=== PATIENT | female | born 2000 | race Caucasian/White ===

== ENCOUNTER 2021-08-13 18:53 | Emergency (ER) | payer OTHER, SELFPAY ==
--- NOTE | ~2021-08-13 | XR_ITS ---
EXAMINATION: XR foot RT 2V, XR ankle RT min 3V DATE: 08/13/2021 19:32 INDICATION: Right foot pain and swelling post injury TECHNIQUE: 1. Anteroposterior, mortise and lateral view of the right ankle were obtained. 2. Dorsoplantar and lateral views of the right foot were obtained. COMPARISON: None. FINDINGS: Nondisplaced intra-articular fracture at the lateral base of the right fifth proximal phalanx. Otherw ise normal alignment throughout the right foot and ankle. No other fractures identified. Joint spaces are normal. IMPRESSION: 1. Nondisplaced intra-articular fracture at the lateral base of the right fifth metatarsal. Reviewed, dictated and finalized at location A. IMPRESSION: 1. Nondisplaced intra-articular fracture at the lateral base of the right fifth metatarsal.
[2021-08-13 19:14] VITALS: BP 153/90; PULSE 111; RESP 18; TEMP 36.9; O2SAT 100
[2021-08-13 22:57] VITALS: BP 148/94; PULSE 87; RESP 16; O2SAT 100
[2021-08-14 00:17] VITALS: BP 154/97; PULSE 98; RESP 16; O2SAT 100
--- NOTE | 2021-08-14 00:20 | ED.LOWEXIN ---
HPI - Extremity Injury (Lower) General Chief Complaint: Extremity Injury, Lower Stated Complaint: right ankle injury Time Seen by Provider: 08/14/21 00:14 History of Present Illness HPI Narrative: Patient is a 21-year-old female who presents ER with right foot injury. She was walking her driveway and stepped on a rock and suffered inversion injury. She not fall or strike her head. Sudden onset pain in her foot. Worse with walking. No numbness or tingling but occasionally has tingling when her foot is below her. Related Data Allergies Allergy/AdvReac Type Severity Reaction Status Date / Time No Known Allergies Allergy Verified 08/13/21 19:18 Review of Systems Respiratory: Respiratory: Denies cough and Denies dyspnea Musculoskeletal: Musculoskeletal: Reports arthralgias, Reports joint swelling and Denies muscle cramps Neurologic: Denies headache(s), Denies focal weakness and Denies numbness Comments: Tingling of the right foot intermittently. [facility] Past Medical History Medical History (Updated 08/14/21 @ 00:23 by Karlo Hagan MD) Healthy female adult Surgical History Surgical History (Updated 08/14/21 @ 00:21 by Karlo Hagan MD) No history of previous surgery Social History Social History (Updated 08/14/21 @ 00:22 by Karlo Hagan MD) Smoking status: Never smoker Exam Narrative: GENERAL: Well-appearing, morbidly obese, and in no acute distress. HEAD: Normocephalic, atraumatic. CHEST: Clear to auscultation. No respiratory distress. HEART: Regular rate and rhythm. Normal peripheral pulses. EXTREMITIES: Focused exam of the right foot reveals tenderness at the base of the fifth metatarsal. No tenderness at the ankle. No bruising or swelling. NEURO: No focal deficits. Alert and oriented x3. Course Course Emergency Course: [place] x1 here. Postop shoe and crutches for home. Follow-up with orthopedic surgery. Vital Signs Vital signs: Vital Signs Temperature 98.4 F 08/13/21 19:14 Pulse Rate 111 H 08/13/21 19:14 Respiratory Rate 18 08/13/21 19:14 Blood Pressure 153/90 H 08/13/21 19:14 Pulse Oximetry 100 08/13/21 19:14 Temperature 98.4 F 08/13/21 19:14 Pulse Rate 98 08/14/21 00:17 Respiratory Rate 16 08/14/21 00:17 Blood Pressure 154/97 H 08/14/21 00:17 Pulse Oximetry 100 08/14/21 00:17 MDM - Extremity Injury (Lower) Imaging Data Radiologist's impression: ITS Impressions Ankle X-Ray 08/13/21 19:45 IMPRESSION: 1. Nondisplaced intra-articular fracture at the lateral base of the right fifth metatarsal. Foot X-Ray 08/13/21 19:45 IMPRESSION: 1. Nondisplaced intra-articular fracture at the lateral base of the right fifth metatarsal. Discharge Plan Discharge Clinical Impression: Closed fracture of fifth metatarsal bone Patient Disposition: Home, Self-Care Condition: Stable Instructions: Foot Fracture in Adults (ED) Additional Instructions: Return to the ER if you have chest pain or shortness of breath, you suffer new injury, you have additional concerns. Bear weight as tolerated. Follow-up with orthopedic surgery. Prescriptions: New hydrocodone-acetaminophen 5-325 mg tablet 1 tablet PO Q6H PRN (Reason: pain) Qty: 10 RF: 0 Follow-up/Referrals: Felice Blanco MD [Physician] - 1 Week PHYSICIAN,INVENTORY ASSOCIATE [Primary Care Provider] -
[2021-08-14 00:56] VITALS: BP 154/97; PULSE 80; RESP 18; TEMP 36.7; O2SAT 100
[2021-08-14] MEDS: HYDROcodone/acetaminophen (*CRX) 5-325 MG TABLET 1 TAB PO (01:04)
== END 2021-08-14 01:09 | disposition home or self-care (01) ==
LOC: ANHED 08-14 00:33
PROVIDERS: Emergency Provider Emergency Medicine
DX: S92.354A Nondisplaced fracture of fifth metatarsal bone, right foot, initial encounter for closed fracture (principal); X50.1XXA Overexertion from prolonged static or awkward postures, initial encounter
CPT/HCPCS: 73610; 73620; 99284; A9270

== ENCOUNTER 2022-08-22 09:41 | Emergency (ER) | payer OTHER, SELFPAY ==
--- NOTE | 2022-08-22 09:48 | ED.URI ---
HPI - URI/Sore Throat General Chief Complaint: Upper Respiratory Infection Stated Complaint: migraine sore throat aches nausea Time Seen by Provider: 08/22/22 09:49 Source: patient Mode of arrival: ambulatory Limitations: no limitations History of Present Illness HPI Narrative: Ms. Barclay is a 22-year-old female patient presenting to the clinic today with complaints of a headache, sore throat, body aches, low-grade fever, and nausea x6 days. She reports symptoms started last Saturday. She had a COVID test completed for work this morning. She reports that she had a low-grade fever today. No known sick contacts. History of tonsillectomy MD elicited complaint: fever, cough, sore throat, rhinorrhea, nasal congestion and other (Headache) Related Data Allergies Allergy/AdvReac Type Severity Reaction Status Date / Time No Known Allergies Allergy Verified 10/17/21 13:52 Review of Systems Review of Systems: Pertinent positives per HPI. Patient denies any fever, chills, rash, visual changes, dizziness, cough, shortness of breath, chest pain, palpitations, vomiting, diarrhea, constipation, abdominal pain, or any urinary issues. 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 There is no relevant family history pertinent to the patient complaint. Exam Narrative: General: Well-developed, morbidly obese, in no apparent distress Head: Normocephalic, atraumatic Eyes: Pupils equally round and reactive to light bilaterally, EOM intact, sclera and conjunctive clear, no discharge, lids normal Ears: TMs intact, dull, red, ear canals clear, no drainage, grossly hearing normal. Nose: Nares patent, clear nasal discharge, no inflammation, no sinus tenderness. Mouth: Oral pharynx without lesions or masses, good dentition, MMM. Oropharynx red, postnasal drip, tonsils surgically absent Neck: Supple, trachea midline, mild enlargement of anterior cervical nodes, no thyroid masses or goiter palpable. Cardio: Regular rate and rhythm, s1 and s2 normal, no murmur appreciated. Resp: Clear to auscultation bilaterally, no rhonchi, rales, wheezing or rubs Course Course Emergency Course: Portions of this record may have been created with voice recognition software. Level of Care: Express Care Visit Vital Signs Vital signs: Vital signs reviewed MDM - URI/Sore Throat MDM Narrative Medical decision making narrative: At the time of visit patient is resting comfortably on the exam table, patient had COVID test performed this morning for work and it was negative. Influenza and strep testing performed in the clinic today and they were negative. I suspect the patient has upper respiratory infection with viral syndrome. Supportive measures were discussed with the patient she voiced understanding of discharge instructions and agrees to treatment plan. Differential Diagnosis Differential diagnosis: Likely upper respiratory infection, otitis media, sinusitis, viral infection, bronchitis, influenza, pharyngitis and other (COVID) Discharge Plan Discharge Clinical Impression: Viral syndrome, URI (upper respiratory infection) Maciel
[2022-08-22 09:50] VITALS: BP 161/102; PULSE 119; RESP 18; TEMP 37; O2SAT 100
== END 2022-08-22 10:27 | disposition home or self-care (01) ==
PROVIDERS: Emergency Provider Nurse Practitioner Family
DX: B34.9 Viral infection, unspecified (principal); J06.9 Acute upper respiratory infection, unspecified; E66.9 Obesity, unspecified; Z68.43 Body mass index [BMI] 50.0-59.9, adult
CPT/HCPCS: 87081; 87804; 87880; 99213; G0463

== ENCOUNTER 2022-08-28 10:53 | Emergency (ER) | payer OTHER, SELFPAY ==
--- NOTE | ~2022-08-28 | XR_ITS ---
EXAMINATION: XR chest 1V portable DATE: 08/28/2022 14:21 INDICATION: Cough. Upper respiratory infection. Fever and shortness of breath. TECHNIQUE: A single frontal view of the chest was obtained. COMPARISON: None. FINDINGS: The chest demonstrates clear lungs without pneumonia, pleural effusion, or pneumothorax. Th e heart size is normal. IMPRESSION: 1. No acute cardiopulmonary disease. Reviewed, dictated and finalized at location A.
[2022-08-28 11:03] VITALS: BP 153/73; PULSE 99; RESP 17; TEMP 36.3; O2SAT 99
--- NOTE | 2022-08-28 13:26 | ED.URI ---
HPI - URI/Sore Throat General Chief Complaint: Upper Respiratory Infection <TOPHER [place] Last Filed: 08/28/22 18:01> Stated Complaint: upper resp. symptoms <TOPHER [place] Last Filed: 08/28/22 18:01> Time Seen by Provider: 08/28/22 12:43 <TOPHER [place] Last Filed: 08/28/22 18:01> Source: patient <TOPHER [place] Last Filed: 08/28/22 18:01> Mode of arrival: ambulatory <TOPHER [place] Last Filed: 08/28/22 18:01> Limitations: no limitations <TOPHER [place] Last Filed: 08/28/22 18:01> History of Present Illness HPI Narrative: Patient is a 22-year-old female who presents to the ED with multiple complaints. Patient reports she has been sick for the past 2 weeks. She reports having muscle aches, headache, congestion, rhinorrhea, sore throat, cough, nausea, vomiting, intermittent fever. She has been seen at an urgent care recently and had negative influenza and strep testing. She has tested negative for covid last week and this morning. She states symptoms seem to be improving over the weekend, but became worse again over the last couple days, prompting her presentation. She denies any chest pain, difficulty breathing, hemoptysis, abdominal pain. <TOPHER [place] Last Filed: 08/28/22 18:01> Related Data Allergies/Adverse Reactions: Allergies Allergy/AdvReac Type Severity Reaction Status Date / Time No Known Allergies Allergy Verified 10/17/21 13:52 <TOPHER [place] Last Filed: 08/28/22 18:01> Review of Systems Review of Systems: CONSTITUTIONAL: Denies fever, chills, or sweats. ENT: Reports rhinorrhea, congestion, sore throat. CARDIOVASCULAR: Denies chest pain. RESPIRATORY: Reports cough. Denies dyspnea. GASTROINTESTINAL: Reports nausea, vomiting. Denies abdominal pain, diarrhea. MUSCULOSKELETAL: Reports myalgia. NEUROLOGIC: Reports headache. Denies numbness, or weakness. <Tatyana Del Toro PA-C - Last Filed: 08/28/22 18:01> All systems reviewed & are unremarkable except as noted in HPI and below <Tatyana Del Toro PA-C - Last Filed: 08/28/22 18:01> [facility] Past Medical History Medical History: Medical History (Updated 08/29/22 @ 00:01 by Kiel Goldberg) Obesity <Tatyana Del Toro PA-C - Last Filed: 08/28/22 18:01> Surgical History Surgical History: Surgical History (Updated 08/28/22 @ 13:27 by Tatyana Del Toro PA-C) History of tonsillectomy 2009 <Tatyana Del Toro PA-C - Last Filed: 08/28/22 18:01> Family History Family History: Family History Other Depression Diabetes mellitus Hypertension <Tatyana Del Toro PA-C - Last Filed: 08/28/22 18:01> Social History Social History: Social History Alcohol intake: current Substance use: never Substance use type: does not use 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 HEAD: Normocephalic, atraumatic. EYES: PERRL/EOMI, conjunctivae clear bilaterally. NOSE: Normal, scant yellow drainage. Tenderness to palpation over ethmoid and maxillary sinuses. EARS: TMS clear, with good light reflex. No erythema or bulging. THROAT: Pharynx clear, no exudate. MMs moist. Minimal posterior erythema. NECK: Supple. Minimal anterior cervical tender adenopathy, no masses. RESPIRATORY: Airway patent, respirations nonlabored. Clear to auscultation bilaterally, no rales, rhonchi, wheezing. No respiratory distress. CARDIOVASCULAR: Regular rate and rhythm without murmurs, rubs, or gallops. Peripheral pulses 2+ and equal bilater
[2022-08-28] MEDS: ONDANSETRON HCL ODT 4 MG TABLET PO (13:32)
[2022-08-28 13:46] LABS: Basophils Percent Auto 0.3 % (0.2-1.2); Eosinophils Absolute Auto 0.2 K/mm3 (0-0.3); Eosinophils Percent Auto 1.4 % (0-4.4); Hematocrit 41.5 % (37.0-47.0); Hemoglobin 13.8 g/dL (12.0-15.0); Immature Granulocyte Absolute 0.03 K/mm3 (0.00-0.031); Immature Granulocyte Percent A 0.3 % (0-0.5); Lymphocytes Absolute Auto 2.51 K/mm3 (0.9-3.2); Lymphocytes Percent Auto 22.4 % (18.3-44.2); Mean Corpuscular HGB Conc 33.3 g/dl (32-36); Mean Corpuscular Hemoglobin 29.4 pg (26-34); Mean Corpuscular Volume 88.3 fl (80-100); Mean Platelet Volume 8.9 fl (7.4-10.4); Monocytes Absolute Auto 0.5 K/mm3 (0.1-0.6); Monocytes Percent Auto 4.3 % (2.6-8.5); Neutrophils Percent Auto 71.3 % (45.5-73.1); Platelet Count Result 420 k/mm3 (150-375); Red Cell Distribution Width 13.1 % (11.5-14.5); White Blood Count 11.2 K/mm3 (4.5-10.0)
[2022-08-28 13:57] LABS: Alanine Aminotransferase 38 U/L (6-35); Albumin Level 4.8 g/dL (3.5-5.1); Alkaline Phosphatase 102 U/L (38-126); Anion Gap 15 mmol/L (8-16); Aspartate Amino Transferase 32 U/L (14-36); Bilirubin,Total 0.7 mg/dL (0.2-1.3); Blood Urea Nitrogen 13 mg/dL (7-17); Calcium 9.5 mg/dL (8.4-10.2); Carbon Dioxide 26 mmol/L (22-30); Chloride 102 mmol/L (98-107); Estimated CRCL calculation 194 ml/min; Estimated Glomerular Filt Rate > 60; Glucose 104 mg/dL (65-110); Potassium 3.9 mmol/L (3.4-5.0); Sodium 143 mmol/L (137-145)
[2022-08-28] MEDS: AMOXICILLIN/CLAVULANATE K 875-125 MG TAB 1 TABLET PO (15:32)
[2022-08-28 15:41] VITALS: BP 142/76; PULSE 76; RESP 18; O2SAT 99
== END 2022-08-28 15:42 | disposition home or self-care (01) ==
PROVIDERS: Physician Assistant; Emergency Provider Emergency Medicine
DX: J01.90 Acute sinusitis, unspecified (principal); B96.89 Other specified bacterial agents as the cause of diseases classified elsewhere
CPT/HCPCS: 36415; 71045; 80053; 85025; 99283; A9270

== ENCOUNTER 2022-12-28 09:21 | Emergency (ER) | payer OTHER, SELFPAY ==
[2022-12-28 09:39] VITALS: BP 151/100; PULSE 107; RESP 16; TEMP 37.3; O2SAT 100
--- NOTE | 2022-12-28 09:42 | ED.URI ---
HPI - URI/Sore Throat General Chief Complaint: Upper Respiratory Infection Stated Complaint: chills, sore throat, swollen lymph nodes, fever Time Seen by Provider: 12/28/22 09:42 History of Present Illness HPI Narrative: 22-year-old female presented for complaint of sore throat, neck pain with swollen glands, headache and fever since yesterday. She endorses fever of 101 yesterday. Reports decreased appetite. She has taken Tylenol and ibuprofen. She took a negative COVID test at home today. She denies shortness of breath, wheezing, vomiting, diarrhea, or lethargy. Endorses sick contacts with COVID at work. 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 EYES: conjunctivae clear ENT: Mucous membranes moist. TM pearly [place] with normal light reflex bilaterally; no tragal tenderness. Oropharynx erythematous without lesions. Tonsils absent. No drooling, no hoarseness, no trismus, uvula midline. No tripod positioning, hot potato voice, or soft palate swelling. NECK: Supple. Bilateral anterior cervical lymphadenopathy CHEST: Clear to auscultation, breath sounds equal. HEART: Regular rate and rhythm. No murmur heard. SKIN: Warm, dry, no rash. NEURO: Alert and oriented x3. Course Course Emergency Course: Patient is aware of diagnosis, understands and agrees to treatment plan. Anticipatory guidance given. Patient agrees to follow-up as directed and is aware of reasons to seek care at the emergency department. Portions of this record may have been created with voice recognition software Level of Care: Express Care Visit MDM - URI/Sore Throat MDM Narrative Medical decision making narrative: strep result reviewed with pt. Advise supportive treatments. Patient is appropriate for outpatient treatment and follow-up. Differential Diagnosis Differential diagnosis: Likely upper respiratory infection, viral infection and pharyngitis Discharge Plan Discharge Clinical Impression: Strep pharyngitis Patient Disposition: Home, Self-Care Condition: Stable Instructions: Antibiotic Form, Strep Throat (ED) Additional Instructions: - Take the antibiotic as directed. Fever and sore throat typically resolve within one to three days. Most patients can return to work after 12 to 24 hours of antibiotic therapy, provided you are fever free and otherwise well. -Eat and drink things that are easy to swallow, like soft foods, cool liquids, tea with honey, or popsicles . -Salt water gargles and/or may use topical anesthetic ( Chloraseptic spray) or lozenges to relieve dryness or throat pain -Alternate Tylenol and ibuprofen as needed for pain and fever as directed. -Frequent hand washing or hand shuttle operator is one of the best ways to prevent spread of infection. Throw away the toothbrush after 24hours of antibiotic. -Follow up with primary care provider in 2-3 days if condition is not improving -Go to the ER if you have trouble breathing, cannot drink enough fluids, have muffled voice or drooling, difficulty opening your mouth, or toni
== END 2022-12-28 09:58 | disposition home or self-care (01) ==
PROVIDERS: Emergency Provider Nurse Practitioner Family
DX: J02.0 Streptococcal pharyngitis (principal)
CPT/HCPCS: 87804; 87880; 99213; G0463

== ENCOUNTER 2023-04-02 16:48 | Emergency (ER) | payer OTHER, SELFPAY ==
[2023-04-02 17:18] VITALS: BP 147/97; PULSE 94; RESP 18; TEMP 36.4; O2SAT 99
--- NOTE | 2023-04-02 17:20 | ECG_ITS ---
Measurements Intervals [place] Rate: 88 P: 12 NV: 159 QRS: -2 QRSD: 86 T: 30 QT: 353 QTc: 428 Interpretive Statements SINUS RHYTHM VOLTAGE CRITERIA FOR LVH BASELINE ARTIFACT- I, II, III, AVL, AVF, V2 BORDERLINE ECG NO PREVIOUS ECG AVAILABLE FOR COMPARISON Electronically Signed On 04-03-2023 6:38:07 CDT by Mandeep Treviño D.O.
[2023-04-02 17:44] LABS: Basophils Percent Auto 0.3 % (0.2-1.2); Eosinophils Absolute Auto 0.1 K/mm3 (0-0.3); Eosinophils Percent Auto 0.4 % (0-4.4); Hematocrit 40.1 % (37.0-47.0); Immature Granulocyte Absolute 0.03 K/mm3 (0.00-0.031); Immature Granulocyte Percent A 0.3 % (0-0.5); Lymphocytes Absolute Auto 2.08 K/mm3 (0.9-3.2); Lymphocytes Percent Auto 18.7 % (18.3-44.2); Mean Corpuscular HGB Conc 32.4 g/dl (32-36); Mean Corpuscular Hemoglobin 28.8 pg (26-34); Mean Corpuscular Volume 88.9 fl (80-100); Mean Platelet Volume 8.9 fl (7.4-10.4); Monocytes Absolute Auto 0.5 K/mm3 (0.1-0.6); Monocytes Percent Auto 4.4 % (2.6-8.5); Neutrophils Absolute Auto 8.5 K/mm3 (1.3-6.7); Neutrophils Percent Auto 75.9 % (45.5-73.1); Platelet Count Result 406 k/mm3 (150-375); Red Blood Count 4.51 M/mm3 (4.2-5.4); Red Cell Distribution Width 13.1 % (11.5-14.5); White Blood Count 11.1 K/mm3 (4.5-10.0)
[2023-04-02 17:55] LABS: Alanine Aminotransferase 32 U/L (6-35); Albumin Level 4.7 g/dL (3.5-5.1); Alkaline Phosphatase 91 U/L (38-126); Anion Gap 9 mmol/L (8-16); Aspartate Amino Transferase 31 U/L (14-36); Bilirubin,Total 0.6 mg/dL (0.2-1.3); Blood Urea Nitrogen 12 mg/dL (7-17); Calcium 9.1 mg/dL (8.4-10.2); Carbon Dioxide 28 mmol/L (22-30); Chloride 102 mmol/L (98-107); Estimated CRCL calculation 194 ml/min; Estimated Glomerular Filt Rate > 60; Glucose 106 mg/dL (65-110); Potassium 3.5 mmol/L (3.4-5.0); Sodium 139 mmol/L (137-145)
--- NOTE | 2023-04-02 20:12 | PC.NURSE ---
Pt states she had 4 wisdom teeth removed this morning. Reports she only had local numbing medication. Around 1620 pt states I started feeling dizzy, and really cold, and I started to lose my hearing. I looked down at my watch and my heart rate was in the 40's . Pt states this episode lasted 3-5 minutes. She denies any dizziness or SOB at this time. Her only complaint is headache rated 2/10. Speech is clear, pupils PEARRL, moves all extremities equally.
--- NOTE | 2023-04-02 20:57 | ED.SYNCOPE ---
HPI - Syncope General Chief Complaint: Syncope Stated Complaint: Unspecified Time Seen by Provider: 04/02/23 19:55 History of Present Illness HPI narrative: Patient is a 22-year-old female presenting after a syncopal episode. Patient states that she had her wisdom teeth removed this morning. States that she was able to go home afterwards. States that she went to the bathroom and as she was sitting on the toilet, she became lightheaded, diaphoretic, nauseated. States that she felt like she was about to pass out. States that she has had a similar episode in the past that was related to severe back pain. Patient states that she remained seated for several minutes and then the episode improved. No chest pain. States that she had some shortness of breath during the episode but not since. No numbness or weakness, vision changes, speech changes, no vomiting or diarrhea. Denies leg swelling. Denies further complaints. Currently, she states she feels at baseline. 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 HEAD: Normocephalic, atraumatic. EYES: PERRLA and EOMI. ENT: Nares clear, no rhinorrhea or epistaxis. Mucous membranes moist. NECK: Supple. CHEST: No respiratory distress. HEART: Regular rate and rhythm ABDOMEN: Soft, nontender, nondistended EXTREMITIES: Normal range of motion. No edema. SKIN: Warm, dry, no rash. NEURO: No focal deficits. Alert and oriented x3. PSYCH: Normal mood and affect. Course Vital Signs Vital signs: Vital Signs Temperature 97.6 F 04/02/23 17:18 Pulse Rate 94 04/02/23 17:18 Respiratory Rate 18 04/02/23 17:18 Blood Pressure 147/97 H 04/02/23 17:18 Pulse Oximetry 99 04/02/23 17:18 Oxygen Delivery Room Air 04/02/23 17:18 Temperature 97.6 F 04/02/23 17:18 Pulse Rate 88 04/02/23 21:13 Respiratory Rate 16 04/02/23 21:13 Blood Pressure 132/92 H 04/02/23 21:13 Pulse Oximetry 99 04/02/23 21:13 Oxygen Delivery Room Air 04/02/23 17:18 MDM - Syncope MDM Narrative Medical decision making narrative: Patient is a 22-year-old female presenting with a syncopal episode. Patient is hypertensive, otherwise vitals are within normal limits. Exam is remarkable for the above. Patient is well-appearing and in no acute distress. EKG per my interpretation shows normal sinus rhythm, left axis deviation, no ST elevations or depressions. Blood work is unremarkable. On my evaluation, the patient is resting comfortably and she denies any current complaints. From the description of the event, it sounds like an episode of vasovagal syncope. Advise close PCP follow-up. Appropriate return precautions given. Patient voiced understanding and is agreeable with plan. Discharged in stable condition. Differential Diagnosis Differential diagnosis: Likely syncope due to orthostatic hypotension, vasovagal syncope and dehydration Medical Records Attestation: I reviewed the patient's medical r
[2023-04-02 21:13] VITALS: BP 132/92; PULSE 88; RESP 16; O2SAT 99
== END 2023-04-02 21:20 | disposition home or self-care (01) ==
PROVIDERS: Emergency Medicine; Emergency Provider Emergency Medicine
DX: R55 Syncope and collapse (principal); E66.9 Obesity, unspecified; Z68.42 Body mass index [BMI] 45.0-49.9, adult; R94.31 Abnormal electrocardiogram [ECG] [EKG]
CPT/HCPCS: 36415; 80053; 81025; 85025; 93005; 99284

== ENCOUNTER 2023-11-28 16:06 | Emergency (ER) | payer OTHER, SELFPAY ==
--- NOTE | ~2023-11-28 | XR_ITS ---
EXAMINATION: XR hand RT min 3V DATE: 11/28/2023 22:35 INDICATION: Dog bite with bruising to the region of the second-fourth metacarpals TECHNIQUE: Posteroanterior, oblique and lateral views of the right hand were obtained. COMPARISON: None. FINDINGS: Alignment is normal. No fracture. Joint spaces are normal. Mild soft tissue swelling dorsal to the di stal metacarpals. IMPRESSION: 1. No osseous abnormality. Reviewed, dictated and finalized at location A. [employer] IMPRESSION: 1. No osseous abnormality.
--- NOTE | ~2023-11-28 | XR_ITS ---
EXAMINATION: XR chest 1V portable DATE: 11/28/2023 22:34 INDICATION: Dyspnea. COVID positive. TECHNIQUE: frontal view of the chest was obtained. COMPARISON: Chest radiograph dated 08/28/2022 FINDINGS: The lungs are clear with no focal airspace opacities, pulmonary edema, pleural effusion or pneumothor ax. The cardiomediastinal silhouette is normal. Visualized bones and soft tissues are unremarkable. IMPRESSION: 1. No acute cardiopulmonary disease. Reviewed, dictated and finalized at location A. [employer]
--- NOTE | 2023-11-28 16:11 | ECG_ITS ---
Measurements Intervals [place] Rate: 109 P: 19 IA: 165 QRS: -6 QRSD: 80 T: 40 QT: 323 QTc: 435 Interpretive Statements SINUS TACHYCARDIA POSSIBLE LEFT ATRIAL ENLARGEMENT POSSIBLE LEFT VENTRICULAR HYPERTROPHY ABNORMAL ECG COMPARED TO ECG 04/02/2023 20:06:44 SINUS TACHYCARDIA NOW PRESENT Electronically Signed On 11-29-2023 6:34:02 DONOR RECRUITMENT MANAGER by Mandeep Treviño D.O.
[2023-11-28 16:15] VITALS: BP 146/101; PULSE 118; RESP 16; TEMP 37.6; O2SAT 100
[2023-11-28 18:43] VITALS: BP 145/101; PULSE 114; TEMP 37; O2SAT 100
[2023-11-28 22:11] VITALS: BP 151/90; PULSE 110; RESP 21; TEMP 36.9; O2SAT 100
[2023-11-28] MEDS: TETANUS,DIPHTHERIA,AC PERTUSSIS ADULT (0.5 ML) BOOSTRIX IM (22:30)
[2023-11-28] MEDS: SODIUM CHLORIDE 0.9% IV 1,000 ML 999 ML IV CONT (22:35)
[2023-11-28 22:49] LABS: Basophils Percent Auto 0.3 % (0.2-1.2); Eosinophils Percent Auto 0.4 % (0-4.4); Hematocrit 44.5 % (37.0-47.0); Immature Granulocyte Absolute 0.01 K/mm3 (0.00-0.031); Immature Granulocyte Percent A 0.1 % (0-0.5); Lymphocytes Absolute Auto 1.74 K/mm3 (0.9-3.2); Lymphocytes Percent Auto 25.1 % (18.3-44.2); Mean Corpuscular HGB Conc 31.5 g/dl (32-36); Mean Corpuscular Hemoglobin 27.9 pg (26-34); Mean Corpuscular Volume 88.8 fl (80-100); Mean Platelet Volume 9.3 fl (7.4-10.4); Monocytes Absolute Auto 0.8 K/mm3 (0.1-0.6); Monocytes Percent Auto 11.6 % (2.6-8.5); Neutrophils Absolute Auto 4.3 K/mm3 (1.3-6.7); Neutrophils Percent Auto 62.5 % (45.5-73.1); Platelet Count Result 391 k/mm3 (150-375); Red Blood Count 5.01 M/mm3 (4.2-5.4); Red Cell Distribution Width 13.7 % (11.5-14.5); White Blood Count 6.9 K/mm3 (4.5-10.0)
[2023-11-28 23:00] LABS: Lipase 86 U/L (23-300); Magnesium 1.9 mg/dL (1.6-2.3)
[2023-11-28 23:01] LABS: Add Urine Microscopic? YES; Appearance Urine Clear (Clear); Blood Urine Trace-Intact (Negative); Color Urine Yellow (Yellow); Glucose Urine UA Negative (Negative); Ketones Urine 2+ mg/dL (Negative); Nitrate Urine Negative (Negative); Protein Urine 1+ mg/dL (Negative); Specific Grav Ur >= 1.030 (1.001-1.035)
[2023-11-28 23:02] LABS: Bilirubin Urine 1+ (Negative); Leukocyte Esterase Ur 1+ LEU/UL (Negative); Urobilinogen Urine 0.2 mg/dL (<2.0)
[2023-11-28 23:03] LABS: Lactic Acid Reflex 0.9 mmol/L (0.7-2.0)
[2023-11-28 23:07] LABS: Bacteria Urine 1+ /hpf; Squamous Epithelial Cell Urine Few /hpf (Few)
[2023-11-28 23:07] LABS: Prothrombin Time 13.8 Seconds (11.1-14.7)
[2023-11-28 23:08] LABS: Partial Thromboplastin Time 30.7 SECONDS (22.3-36.8)
[2023-11-28 23:13] LABS: NT Pro B Type Natriuretic Pept 28 pg/mL (19.9-100); Troponin I < 0.012 ng/mL (0.000-0.034)
[2023-11-28 23:30] LABS: Procalcitonin 0.1 ng/mL
[2023-11-28 23:35] LABS: D Dimer 0.35 ug/mL (<0.48)
[2023-11-28] MEDS: ACETAMINOPHEN 500 MG TABLET 1000 MG PO (23:49)
[2023-11-28 23:50] VITALS: BP 146/82; PULSE 110; RESP 15; O2SAT 100
--- NOTE | 2023-11-28 23:59 | ED.GENADULT ---
HPI - General Adult General Chief complaint: Arrhythmia/Palpitations Stated complaint: elevated HR Time Seen by Provider: 11/28/23 22:06 History of Present Illness HPI narrative: patient is a 23-year-old female who presents to emergency department with chief complaint of shortness of breath and elevated heart rate. The patient reports that she tested positive for COVID-19 today and reports that she has noticed that her heart rates been high and she also reports that her right hand was bitten by a dog that is her own dog his shots of a Related Data Allergies Allergy/AdvReac Type Severity Reaction Status Date / Time No Known Allergies Allergy Verified 11/28/23 16:10 Review of Systems Review of Systems: A 10 system review of systems was completed on the patient and is negative except for what is stated in the HPI. Nursing and ancillary documentation was reviewed. 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 HEAD: Normocephalic, atraumatic. EYES: PERRLA and EOMI. ENT: Nares clear, no rhinorrhea or epistaxis. Mucous membranes moist. NECK: Supple. CHEST: Clear to auscultation. No respiratory distress. HEART: Regular rate and rhythm. No murmur heard. Normal peripheral pulses. ABDOMEN: Soft, nontender, nondistended, normal active bowel sounds. EXTREMITIES: Normal range of motion. No edema. there is slight bruising present to the dorsum of the right hand there are small puncture wounds present no erythema SKIN: Warm, dry, no rash. NEURO: No focal deficits. Alert and oriented x3. PSYCH: Normal mood and affect. Course Vital Signs Vital signs: Vital Signs Temperature 37.6 C 11/28/23 16:15 Pulse Rate 118 H 11/28/23 16:15 Respiratory Rate 16 11/28/23 16:15 Blood Pressure 146/101 H 11/28/23 16:15 Pulse Oximetry 100 11/28/23 16:15 Temperature 36.9 C 11/28/23 22:11 Pulse Rate 110 H 11/28/23 23:50 Respiratory Rate 15 11/28/23 23:50 Blood Pressure 146/82 H 11/28/23 23:50 Pulse Oximetry 100 11/28/23 23:50 Medical Decision Making MDM Narrative Medical decision making narrative: differential diagnosis includes pulmonary embolism, dehydration, viral syndrome, dog bite the patient's tetanus status was updated plain film x-ray showed no evidence of fracture or foreign body. the patient was started on Augmentin. EKG shows sinus tachycardia the patient was given IV fluids laboratory studies showed a negative D-dimer the patient was offered paxlovid and has agreed to take Paxil of id and has no contraindications to Paxlovid. Vital Signs Vital Signs: Vital Signs Temperature 37.6 C 11/28/23 16:15 Pulse Rate 118 H 11/28/23 16:15 Respiratory Rate 16 11/28/23 16:15 Blood Pressure 146/101 H 11/28/23 16:15 Pulse Oximetry 100 11/28/23 16:15 Temperature 36.9 C 11/28/23 22:11 Pulse Rate 110 H 11/28/23 23:50 Respiratory Rate 15 11/28/23 23:50 Blood Pressure 146/82 H 11/28/23 23:50 Pulse Oximetry 100 11/28/23 23:50 Lab Data 11/28/23 22:37 Labs: Lab Results 11/28/23 11/28/23 11/28/23 Range/Units 22:37 22:37 22:40 WBC 6.9 (4.5-10.0) K/mm3 RBC
[2023-11-29 00:40] VITALS: BP 132/74; PULSE 74; RESP 15; O2SAT 100
== END 2023-11-29 00:41 | disposition home or self-care (01) ==
PROVIDERS: Emergency Provider Emergency Medicine
DX: U07.1 COVID-19 (principal); S61.451A Open bite of right hand, initial encounter; Z23 Encounter for immunization; E66.9 Obesity, unspecified; Z68.41 Body mass index [BMI] 40.0-44.9, adult; R00.0 Tachycardia, unspecified; R94.31 Abnormal electrocardiogram [ECG] [EKG]; W54.0XXA Bitten by dog, initial encounter
CPT/HCPCS: 36415; 71045; 73130; 81001; 81025; 83605; 83690; 83735; 83880; 84145; 84484; 85025; 85380; 85610; 85730; 90471; 90715; 93005; 96360; 96361; 99284; A9270; J7030